=== PATIENT | female | born 1970 | race Asian ===

== ENCOUNTER 2018-08-30 13:27 | Emergency (ER) | payer MEDICARE ==
[~2018-08-30] VITALS: Ht 157.5 cm; Wt 52.2 kg
--- NOTE | 2018-08-30 13:27 | NUR ---
PT AMBULATES TO BED 10
[2018-08-30 13:33] VITALS: BP 175/107
--- NOTE | 2018-08-30 13:37 | NUR ---
URINE CUP HANDED TO PT
--- NOTE | 2018-08-30 13:42 | NUR ---
PATIENT PRESENTS TO ED WITH C/O EPIGASTRIC SHARP PAIN WITH N/V/D X 2 DAYS . SKIN IS PINK/WARM/DRY; AAOX4 WITH EVEN AND STEADY GAIT; LUNGS CLEAR BL; HR EVEN AND REGULAR; PT DENIES ANY FEVER, CP, SOB, OR COUGH AT THIS TIME; PATIENT STATES PAIN OF 8/10 AT THIS TIME; VSS; PATIENT POSITIONED FOR COMFORT; HOB ELEVATED; BEDRAILS UP X2; BED DOWN. ER MD MADE AWARE OF PT STATUS.
--- NOTE | 2018-08-30 13:43 | NUR ---
HYPERTENSIVE EQUALLY ASA LEON NOTIFIED
[2018-08-30] MEDS: NACL 0.9% 1,000 ML IV ONE ×2 (14:23→15:23)
[2018-08-30] MEDS ORDERED: DICYCLOMINE HCL LIQUID 10 MG/5 ML UDC PO ONE (14:25)
[2018-08-30] MEDS ORDERED: ALUMINUM HYD/MAG/SIMETHICONE 30 ML UDC PO ONE (14:25)
[2018-08-30] MEDS ORDERED: PANTOPRAZOLE 40 MG INJ VIAL IVP ONE (14:25)
[2018-08-30] MEDS ORDERED: LIDOCAINE VISCOUS 2% 20 ML UDC PO ONE (14:25)
[2018-08-30 14:54] LABS: ANION GAP 11.2 (8-16); CARBON DIOXIDE 30.6 mmol/L (21-32); CREATININE 0.6 mg/dL (0.6-1.3); POTASSIUM 3.8 mmol/L (3.5-5.1)
[2018-08-30 14:55] LABS: BASOPHILS % (AUTO) 0.5 % (0.0-2.0); EOSINOPHILS # (AUTO) 0.3 K/uL (0-0.4); EOSINOPHILS % (AUTO) 2.5 % (0.0-4.0); HEMATOCRIT 39.3 % (36-48); HEMOGLOBIN 12.7 g/dL (12.0-16.0); LYMPHOCYTES # (AUTO) 1.2 K/uL (2.5-16.5); LYMPHOCYTES % (AUTO) 11.7 % (20.5-51.1); MEAN CORPUSCULAR HEMOGLOBIN 24 pg (27-31); MEAN CORPUSCULAR HGB CONC 32 g/dL (33-37); MEAN CORPUSCULAR VOLUME 75.2 fL (80-94); MONOCYTES # (AUTO) 0.7 K/uL (0.8-1.0); MONOCYTES % (AUTO) 6.3 % (1.7-9.3); NEUTROPHILS # (AUTO) 8.3 K/uL (1.8-7.7); PLATELET COUNT (AUTO) 84 K/uL (140-450); RED BLOOD CELL COUNT(AUTO) 5.23 MIL/uL (4.20-5.40); RED CELL DISTRIBUTION WIDTH 14.5 % (11.6-13.7); WHITE BLOOD COUNT (AUTO) 10.5 K/uL (4.8-10.8)
[2018-08-30 14:59] LABS: ALBUMIN 3.7 g/dL (3.4-5.0); TOTAL BILIRUBIN 0.3 mg/dL (0.0-1.0)
[2018-08-30 15:01] LABS: PROTHROMBIN TIME 9.5 secs (10.8-13.4)
--- NOTE | 2018-08-30 15:55 | NUR ---
Patient discharged with v/s stable. Written and verbal after care instructions given and explained. Patient alert, oriented and verbalized understanding of instructions. Ambulatory with steady gait. All questions addressed prior to discharge. ID band removed. Patient advised to follow up with PMD. Rx of PRILOSEC given. Patient educated on indication of medication including possible reaction and side effects. Opportunity to ask questions provided and answered.
[2018-08-30 15:57] VITALS: BP 155/94
--- NOTE | 2018-09-02 09:05 | NUR ---
Late entry, confirmed with nurse that Dr wanted a bolus and not 100cc/hr. bolus 1000 ml of 0.9NS was completed at 1530.
== END 2018-08-30 15:55 | disposition home or self-care (01) ==
LOC: MED 13:27
DX: K29.70 Gastritis, unspecified, without bleeding (principal); R06.02 Shortness of breath; R61 Generalized hyperhidrosis
CPT/HCPCS: 36415; 71045; 80053; 81002; 81025; 84484; 85025; 85610; 85730; 93005; 96361; 96374; 99284; C9113; J7030